=== PATIENT | male | born 1965 | race Caucasian/White ===

== ENCOUNTER 2018-10-16 10:14 | Emergency (ER) | payer OTHER, MEDICAID ==
[2018-10-16 10:14] VITALS: BP_SYST 132
--- NOTE | 2018-10-16 10:14 | NUR ---
BROUGHT IN BY [facility], PLACED IN BED #1 AND TRIAGED, REPORT GIVEN TO RUIZ
--- NOTE | 2018-10-16 10:20 | NUR ---
ER Dr. JARQUIN at bedside examining patient.
--- NOTE | 2018-10-16 10:22 | NUR ---
PATIENT BROUGHT IN BY [facility]S FOR ALTERED MENTAL STATUS. PATIENT NONVERBAL BUT RESPONSIVE TO PAIN. PATIENT HAS INVOLUNTARY UPPER EXTREMITY MOVEMENT. EMS STATES HE FELL OUT OF WHEEL CHAIR. PATIENT DID NOT HIT HEAD OR KNOCK OUT. STAFF DENIES SEIZURE ACTIVITY. NO SIGNS OF ABRASION OR DISCOLORATION.
[2018-10-16] MEDS ORDERED: NALOXONE HCL 2 MG/2 ML SYR IVP ONE (10:30)
--- NOTE | 2018-10-16 10:39 | NUR ---
PATIENT LEFT TO CT VIA GURNEY IN STABLE CONDITION.
[2018-10-16 10:54] LABS: BASOPHILS # (AUTO) 0.1 K/uL (0.0-0.2); BASOPHILS % (AUTO) 0.7 % (0.0-2.0); EOSINOPHILS # (AUTO) 0.1 K/uL (0.0-0.4); EOSINOPHILS % (AUTO) 1.4 % (0.0-4.0); HEMATOCRIT 41.6 % (36-54); HEMOGLOBIN 14.1 g/dL (14.0-18.0); LYMPHOCYTES # (AUTO) 0.9 K/uL (1.0-5.5); LYMPHOCYTES % (AUTO) 11.6 % (20.5-51.5); MEAN CORPUSCULAR HEMOGLOBIN 33 pg (27-31); MEAN CORPUSCULAR HGB CONC 34 % (32-36); MEAN CORPUSCULAR VOLUME 97 fL (79.0-98.0); MONOCYTES # (AUTO) 0.5 K/uL (0.0-1.0); MONOCYTES % (AUTO) 7.1 % (1.7-9.3); NEUTROPHILS # (AUTO) 5.9 K/uL (1.8-7.7); NEUTROPHILS % (AUTO) 79.2 % (40.0-70.0); PLATELET COUNT (AUTO) 213 K/uL (130-430); RED BLOOD CELL COUNT(AUTO) 4.29 MIL/uL (4.2-6.2); RED CELL DISTRIBUTION WIDTH 16.1 % (9.0-15.0); WHITE BLOOD COUNT (AUTO) 7.4 K/uL (4.8-10.8)
--- NOTE | 2018-10-16 10:56 | NUR ---
PATIENT BACK FROM CT IN STABLE CONDITION.
[2018-10-16 11:05] LABS: ANION GAP 5 (5-15); CALCIUM 9.5 mg/dL (8.4-11.0); CHLORIDE 99 mmol/L (98-107); CREATININE 1.23 mg/dL (0.55-1.30); GLUCOSE 118 mg/dL (70-99); POTASSIUM 4.4 mmol/L (3.5-5.1); SODIUM SERUM 135 mmol/L (136-145); UREA NITROGEN, BLOOD 18 mg/dL (8-21)
[2018-10-16 11:06] LABS: GFR AFRICAN AMERICAN 79 mL/min (>90)
[2018-10-16 11:09] LABS: ALANINE AMINOTRANSFERASE 45 U/L (12-78); ASPARTATE AMINOTRANSFERASE 22 U/L (10-37); PROTHROMBIN TIME 10.5 SECS (9.5-12.5); TOTAL BILIRUBIN 0.5 mg/dL (0.0-1.0)
[2018-10-16 11:10] LABS: ALCOHOL, BLOOD < 3 mg/dL (<10)
--- NOTE | 2018-10-16 11:35 | NUR ---
# 14 FR In and Out catheter with use of sterile technique. Immediate return of 300 ml YELLOW urine noted. Urine sample collected and sent to lab. Pt tolerated procedure WELL. Patient unable to toilet self.
--- NOTE | 2018-10-16 11:47 | NUR ---
PATIENT GIVEN NARCAN. PATIENT STILL ALERT AND ORIENTED EARLIER. PATIENT SAME.
[2018-10-16 11:48] LABS: BILIRUBIN,URINE NEGATIVE (NEGATIVE); BLOOD, URINE 1+ (NEGATIVE); CLARITY/URINE SL HAZY (CLEAR); COLOR,URINE YELLOW (YELLOW); GLUCOSE,URINE NEGATIVE (NEGATIVE); KETONES,URINE NEGATIVE (NEGATIVE); LEUKOCYTE ESTERASE ,URINE NEGATIVE (NEGATIVE); NITRITE, URINE NEGATIVE (NEGATIVE); PROTEIN URINE NEGATIVE (NEGATIVE); UROBILINOGEN,URINE 0.2 (0.2-1.0)
[2018-10-16 12:11] LABS: BARBITURATE, URINE NEGATIVE (NEG <=200); BENZODIAZEPINE, URINE POSITIVE (NEG <=150); CANNABINOID, URINE NEGATIVE (NEG <=50); COCAINE, URINE NEGATIVE (NEG <=150); METHAMPHETAMINES SCREEN,URINE NEGATIVE (NEG <=500); OPIATE, URINE NEGATIVE (NEG <=100); PHENCYCLIDINE SCREEN,URINE NEGATIVE (NEG <=25); UR TRICYCLIC ANTIDEPRESSANTS NEGATIVE (NEG <=300); URINE AMPHETAMINE NEGATIVE (NEG <=500); URINE METHADONE NEGATIVE (NEG <=200); URINE OXYCODONE SCREEN NEGATIVE (NEG <=100); URINE PROPOXYPHENE SCREEN NEGATIVE (NEG <=300)
[2018-10-16 12:14] LABS: BACTERIA,URINE RARE /HPF (None Seen); MUCUS,URINE 1+ /LPF (None Seen); WBC,URINE 0-3 /HPF (0-3)
--- NOTE | 2018-10-16 13:25 | NUR ---
CALLED [facility] AND [facility] AND DID NOT ANSWER. TALKED TO PATIENT'S PUMP MECHANIC MINA DUKES ABOUT PATIENT. SHE UPDATED ME ON WHERE PATIENT IS FROM AND I GAVE HER REPORT AND SHE SAID SHE WOULD NOTIFY WHERE HE IS FROM BECAUSE WHAT WHAT TOLD EARILER FROM EMT'S WAS NOT CORRECT.
[2018-10-16 13:42] VITALS: BP_SYST 142
--- NOTE | 2018-10-16 13:48 | NUR ---
Patient given written and verbal discharge instructions and verbalizes understanding. ER MD discussed with patient the results and treatment provided. Patient in stable condition. ID arm band removed. IV catheter removed intact and dressing applied, no active bleeding. NO Rx given. Patient educated on pain management and to follow up with PMD. Pain Scale 0/10. Opportunity for questions provided and answered. Medication side effect fact sheet provided. Paperwork given to EMT's along with belongings.
--- NOTE | 2018-10-16 13:53 | NUR ---
TALKED TO JUANCARLOS Barajas RN AT PATIENT'S FACILITY AND GAVE HER REPORT ON PATIENT. UPDATED HER ON WHAT WAS TOLD FROM EMT'S. SHE SAID HE IS NEW TO [facility] SO PATIENT'S INFORMATION NEEDS TO BE UPDATED.
== END 2018-10-16 13:48 | disposition home or self-care (01) ==
LOC: SED 10:14
DX: T42.4X1A Poisoning by benzodiazepines, accidental (unintentional), initial encounter (principal); F72 Severe intellectual disabilities; R40.4 Transient alteration of awareness; E03.9 Hypothyroidism, unspecified; N40.0 Benign prostatic hyperplasia without lower urinary tract symptoms; Y92.89 Other specified places as the place of occurrence of the external cause
CPT/HCPCS: 36415; 70450; 71045; 80053; 80307; 81000; 84484; 85025; 85610; 85730; 93005; 96374; 99284; G0482; J2310